=== PATIENT | male | born 1955 | race Caucasian/White ===

== ENCOUNTER 2021-11-21 09:40 | Inpatient (IN) ==
[2021-11-21 10:39] LABS: Basophils % 0.2 %; Eosinophils # 0.1 K/mcL (0.0-0.6); Hematocrit 16.1 % (37.5-50.1); Immature Granulocytes % 0.8 % (0-4); Lymphocytes # 2.3 K/mcL (0.6-4.6); Lymphocytes % 17.1 %; Mean Corpuscular HGB Conc 31.7 g/dL (31.6-35.5); Mean Corpuscular Hemoglobin 29.5 pg (28.0-33.3); Mean Corpuscular Volume 93.1 fL (83.0-100.0); Mean Platelet Volume 9.3 fL (9.4-12.4); Monocytes # 1.5 K/mcL (0.0-1.3); Monocytes % 11.3 %; Neutrophils # 9.5 K/mcL (1.6-8.9); Nucleated Red Blood Cells 0.2 /100 WBC (0); Platelet Count 355 K/mcL (140-400); Red Blood Count 1.73 M/mcL (4.19-5.50); Segmented Neutrophils % 69.6 %; White Blood Count 13.6 K/mcL (4.3-11.1)
[2021-11-21 10:46] LABS: Hemoglobin 5.1 g/dL (12.9-16.9)
[2021-11-21 10:57] LABS: Anisocytosis 1+ (Not Present); Microcytosis Present (Not Present); Platelet Estimate Normal (Normal)
[2021-11-21 10:58] LABS: Hypochromasia Present (Not Present)
[2021-11-21 11:06] LABS: BUN/Creatinine Ratio 41 (6-26); Blood Urea Nitrogen 45 mg/dL (8-23); Calcium 8.2 mg/dL (8.6-10.3); Carbon Dioxide 25 mEq/L (23-29); Chloride 107 mEq/L (98-107); Glucose 120 mg/dL (70-105); Osmolality,Calculated 301 (280-300); Potassium 3.8 mEq/L (3.5-5.1); Sodium 139 mEq/L (136-145); eGFR For African Americans > 60 (> 60); eGFR For Non-African Americans > 60 (> 60)
[2021-11-21 11:25] LABS: Troponin I < 0.03 ng/mL (< 0.04)
[2021-11-21] MEDS: Pantoprazole 40 MG VIAL IVP SCH ×2 (11:49→20:32)
[2021-11-21 11:56] LABS: INR 1.1; Prothrombin Time 11.7 Seconds (9.4-12.1)
[2021-11-21 11:58] LABS: Activated Partial Thrombo Time 27.7 Seconds (26.0-36.0)
[2021-11-21 12:28] LABS: Alanine Aminotransferase 20 Units/L (7-52); Albumin 3.1 g/dL (3.5-5.7); Albumin/Globulin Ratio 1.3 (1.1-2.2); Alkaline Phosphatase 64 Units/L (34-104); Aspartate Amino Transferase 30 Units/L (13-39); Bilirubin,Direct 0.1 mg/dL (0.0-0.2); Bilirubin,Indirect 0.3 mg/dL (0.0-1.0); Bilirubin,Total 0.4 mg/dL (0.3-1.0); Globulin 2.4 g/dL (2.4-3.5); Iron < 10 mcg/dL (65-175); Total Protein 5.5 g/dL (6.4-8.9)
[2021-11-21] MEDS ORDERED: 0.9 % Sodium Chloride 250 ML ONE ×2 (12:36→23:39)
[2021-11-21] MEDS ORDERED: Nicotine 2 MG GUM BC PRN (15:00)
[2021-11-21] MEDS ORDERED: Acetaminophen 325 MG TABLET PO PRN (15:04)
[2021-11-21] MEDS ORDERED: Ondansetron 4 MG/2 ML VIAL IVP PRN (15:04)
[2021-11-21] MEDS ORDERED: Melatonin 3 MG TABLET PO PRN (15:04)
[2021-11-21] MEDS: Nicotine 14 MG PATCH.TD24 TD SCH (16:17)
[2021-11-21] MEDS ORDERED: SODIUM CHLORIDE/NAHCO3/KCL/PEG 4,000 ML SOLN.RECON PO ONE (17:00)
[2021-11-21 23:22] LABS: Hematocrit 17.5 % (37.5-50.1)
[2021-11-21 23:26] LABS: Hemoglobin 5.5 g/dL (12.9-16.9)
[2021-11-22 06:11] LABS: Hematocrit 19.7 % (37.5-50.1); Hemoglobin 6.3 g/dL (12.9-16.9); Mean Corpuscular Hemoglobin 28.6 pg (28.0-33.3); Mean Corpuscular Volume 89.5 fL (83.0-100.0); Mean Platelet Volume 9.6 fL (9.4-12.4); Platelet Count 337 K/mcL (140-400); Red Cell Distribution Width 14.5 % (11.5-14.5); White Blood Count 11.4 K/mcL (4.3-11.1)
[2021-11-22 06:31] LABS: BUN/Creatinine Ratio 31 (6-26); Blood Urea Nitrogen 39 mg/dL (8-23); Calcium 7.7 mg/dL (8.6-10.3); Carbon Dioxide 26 mEq/L (23-29); Chloride 107 mEq/L (98-107); Glucose 101 mg/dL (70-105); Osmolality,Calculated 296 (280-300); Potassium 3.8 mEq/L (3.5-5.1); Sodium 138 mEq/L (136-145); eGFR For African Americans > 60 (> 60); eGFR For Non-African Americans 59 (> 60)
[2021-11-22] MEDS ORDERED: 0.9 % Sodium Chloride 250 ML ONE (08:51)
[2021-11-22] MEDS: Pantoprazole 40 MG VIAL IVP SCH ×2 (09:40→20:58)
[2021-11-22] MEDS: Nicotine 14 MG PATCH.TD24 TD SCH ×2 (09:40→15:48)
[2021-11-22] MEDS ORDERED: *HR* Propofol 200 MG/20 ML VIAL IVP ONE ×2 (13:09→13:52)
[2021-11-22] MEDS ORDERED: Lidocaine -MPF 2% 5 ML VIAL ONE (13:09)
[2021-11-22 17:07] LABS: Hematocrit 21.7 % (37.5-50.1); Hemoglobin 7.1 g/dL (12.9-16.9)
[2021-11-23 05:44] LABS: Basophils % 0.4 %; Eosinophils # 0.2 K/mcL (0.0-0.6); Eosinophils % 2.5 %; Hemoglobin 6.9 g/dL (12.9-16.9); Immature Granulocytes % 0.6 % (0-4); Lymphocytes # 2.3 K/mcL (0.6-4.6); Lymphocytes % 25.8 %; Mean Corpuscular HGB Conc 31.4 g/dL (31.6-35.5); Mean Corpuscular Hemoglobin 28.5 pg (28.0-33.3); Mean Corpuscular Volume 90.9 fL (83.0-100.0); Mean Platelet Volume 9.3 fL (9.4-12.4); Monocytes # 1.2 K/mcL (0.0-1.3); Monocytes % 13.2 %; Neutrophils # 5.2 K/mcL (1.6-8.9); Nucleated Red Blood Cells 0.3 /100 WBC (0); Platelet Count 335 K/mcL (140-400); Red Blood Count 2.42 M/mcL (4.19-5.50); Red Cell Distribution Width 14.6 % (11.5-14.5); Segmented Neutrophils % 57.5 %
[2021-11-23 06:05] LABS: BUN/Creatinine Ratio 25 (6-26); Blood Urea Nitrogen 24 mg/dL (8-23); Calcium 7.8 mg/dL (8.6-10.3); Carbon Dioxide 26 mEq/L (23-29); Chloride 107 mEq/L (98-107); Glucose 111 mg/dL (70-105); Osmolality,Calculated 289 (280-300); Potassium 3.6 mEq/L (3.5-5.1); Sodium 137 mEq/L (136-145); eGFR For African Americans > 60 (> 60); eGFR For Non-African Americans > 60 (> 60)
[2021-11-23] MEDS: Pantoprazole 40 MG VIAL IVP SCH (09:08)
[2021-11-23] MEDS: Nicotine 14 MG PATCH.TD24 TD SCH (09:08)
[2021-11-23] MEDS ORDERED: 0.9 % Sodium Chloride 250 ML ONE (09:48)
[2021-11-23 10:44] VITALS: TEMP 98.1
[2021-11-23 13:38] VITALS: BP 126/71; PULSE 80; O2SAT 92
[2021-11-26 11:27] LABS: Transferrin 401
== END 2021-11-23 14:37 | disposition home or self-care (01) | DRG 378 ==
LOC: EMEROOARM 09:40 → SUATTDRO 12:56 → 3ANU 12:56
PROVIDERS: ADMIT Internal Medicine; ATTEND Internal Medicine
PROC: ENDOCCB (2021-11-22 15:15)
PROC: ENDOEBX (2021-11-22 15:15)